=== PATIENT | male | born 1975 | race African-American/Black ===

== ENCOUNTER 2019-06-12 20:17 | Emergency (ER) | payer SELFPAY ==
[2019-06-12 20:35] VITALS: RESP 16
[2019-06-12 20:53] LABS: Basophils Percent Auto 0.6 % (0.2-1.2); Eosinophils Absolute Auto 0.1 K/mm3 (0-0.3); Eosinophils Percent Auto 1.4 % (0-4.4); Hematocrit 41.1 % (42.0-52.0); Hemoglobin 13.6 g/dL (14.0-18.0); Immature Granulocyte Absolute 0.01 K/mm3 (0.00-0.031); Immature Granulocyte Percent A 0.3 % (0-0.5); Lymphocytes Absolute Auto 2.07 K/mm3 (0.9-3.2); Lymphocytes Percent Auto 59.1 % (18.3-44.2); Mean Corpuscular HGB Conc 33.1 g/dl (32-36); Mean Corpuscular Hemoglobin 30.6 pg (26-34); Mean Corpuscular Volume 92.4 fl (80-100); Mean Platelet Volume 9.1 fl (7.4-10.4); Monocytes Absolute Auto 0.2 K/mm3 (0.1-0.6); Monocytes Percent Auto 6.6 % (2.6-8.5); Neutrophils Absolute Auto 1.1 K/mm3 (1.3-6.7); Platelet Count Result 213 k/mm3 (150-375); Red Blood Count 4.45 M/mm3 (4.6-6.20); Red Cell Distribution Width 13.6 % (11.5-14.5); White Blood Count 3.5 K/mm3 (4.5-10.0)
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
[2019-06-12 21:05] LABS: Alanine Aminotransferase 21 U/L (4-50); Albumin Level 4.6 g/dL (3.5-5.1); Alkaline Phosphatase 76 U/L (38-126); Aspartate Amino Transferase 30 U/L (17-59); Bilirubin,Total 0.2 mg/dL (0.2-1.3); Blood Urea Nitrogen 9 mg/dL (9-20); Calcium 9.5 mg/dL (8.4-10.2); Carbon Dioxide 24 mmol/L (22-30); Chloride 104 mmol/L (98-107); Estimated CRCL calculation 79 ml/min; Estimated Glomerular Filt Rate > 60; Glucose 93 mg/dL (75-110); Potassium 3.4 mmol/L (3.4-5.0); Sodium 140 mmol/L (137-145)
[2019-06-12 21:06] LABS: Ethanol 41 mg/dL (<10)
[2019-06-12 21:37] VITALS: BP 136/73; PULSE 94; RESP 20; TEMP 36.6; O2SAT 100
[2019-06-12] MEDS: OLANZapine DISPERTAB 5 MG PO (21:44)
[2019-06-12 22:15] LABS: Add Urine Microscopic? YES; Appearance Urine Clear (Clear); Bacteria Urine Trace /hpf; Bilirubin Urine Negative (Negative); Blood Urine Negative (Negative); Color Urine Yellow (Yellow); Glucose Urine UA Negative (Negative); Ketones Urine Trace mg/dL (Negative); Leukocyte Esterase Ur Negative LEU/UL (Negative); Mucus Urine Few /lpf; Nitrate Urine Negative (Negative); Protein Urine 1+ mg/dL (Negative); Specific Grav Ur 1.028 (1.001-1.035); Squamous Epithelial Cell Urine Rare /hpf (Few); WBC Urine 0-3 /hpf
[2019-06-12 22:30] LABS: Barbiturate Screen Urine Negative (Negative); Benzodiazepines Screen Urine Negative (Negative); Cannabinoid Screen Urine Positive (Negative); Cocaine Screen Urine Negative (Negative); Methadone Screen Urine Negative (Negative); Opiate Screen Urine Negative (Negative); Phencyclidine Screen Urine Negative (Negative)
--- NOTE | 2019-06-12 22:45 | ECG_ITS ---
Measurements Intervals Sarah Rate: 71 P: 78 MO: 158 QRS: 71 QRSD: 109 T: 75 QT: 422 QTc: 460 Interpretive Statements SINUS RHYTHM WITH SINUS ARRHYTHMIA NONSPECIFIC T-WAVE ABNORMALITY- ANT/LAT LEADS BORDERLINE ECG Electronically Signed On 06-13-2019 7:22:08 [employer] by Saw Borrero D.O.
[2019-06-12 22:50] LABS: Amphetamine Screen Urine Positive (Negative)
--- NOTE | 2019-06-13 00:59 | PC.NURSE ---
A nurse from [facility], calls and contacts this nurse to request patient's EKG and time patient was medically cleared by the EDP. She requested to have information faxed over and she will call back.
--- NOTE | 2019-06-13 01:55 | PC.NURSE ---
Buster from [facility] calls to notify this nurse that the patient has been accepted and that the accepting physician is . Buster also states to re-fax the voluntary form and they will call back for report.
[2019-06-13 03:48] VITALS: BP 114/65; PULSE 69; RESP 16; O2SAT 99
--- NOTE | 2019-06-13 03:55 | PC.NURSE ---
Called [facility] to transport patient. ETA [id number]
--- NOTE | 2019-06-13 04:10 | PC.NURSE ---
At [id number] Pan from [facility] calls to get report for patient and to inform this nurse of patient's room number. Maxim states patient's room number is 5114-A.
[2019-06-13 04:12] VITALS: BP 114/65; PULSE 69; RESP 16; TEMP 36.6; O2SAT 99
--- NOTE | 2019-06-13 04:16 | PC.NURSE ---
[facility] here.
== END 2019-06-13 04:22 ==
PROVIDERS: Emergency Provider Emergency Medicine
DX: F41.9 Anxiety disorder, unspecified (principal); F31.9 Bipolar disorder, unspecified; F20.0 Paranoid schizophrenia
CPT/HCPCS: 36415; 80053; 80307; 81001; 84443; 85025; 93005; 99285; A9270